=== PATIENT | female | born 1945 | race Caucasian/White ===

== ENCOUNTER 2021-02-01 10:09 | Inpatient (IN) | payer OTHER ==
[~2021-02-01] VITALS: Ht 172.7 cm; Wt 133.8 kg
--- NOTE | ~2021-02-01 | HC ---
[facility] [place] [address] CONSULTATION Name: LOVE CASTANEDA Room #: 350-P ADM IN M.R.#: [id number] Admission: 02/01/21 Attend Phys: Neymar Petersen MD Discharge: Date of : 45 Report #: [id number] THIS REPORT FOR: cc: Mukesh Cantor MD, Marjon MD Khosla, Parveen K. MD ~ DOC #: [id number] Sam Ibrahim MD DATE OF SERVICE: 02/02/2021 HISTORY OF PRESENT ILLNESS: This 75-year-old female patient who was seen by me for abnormal CT scan of the head. The patient is encephalopathic and she is not able to provide much reliable history. I called the patient's , but he did not pharmacy picking technician his phone. She is admitted with multiple problems including alteration in mental status, generalized weakness, poor appetite, and diarrhea. 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 REVIEW OF SYSTEMS: Review of system is only from the record. One of the record indicates that this patient has aneurysm and talking to the hospitalist indicated the patient may have had a surgery for pituitary gland in the past. She has right eye blindness. She says it is because of trauma, but I am not able to confirm. She has a history of hypertension and diabetes. She had a partial hysterectomy, PEE. 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 That was a relevant a 14-point review of system. PAST MEDICAL HISTORY: Positive for some pituitary surgery, I need more history on that. FAMILY HISTORY: Unremarkable. SOCIAL HISTORY: She is , but I am not able to reach the to get some more history. She says she does not drink alcohol. The history is not reliable. PHYSICAL EXAMINATION: NEUROLOGICAL: Her exam is limited. She is alert. She was able to tell me what month it is, could not tell me the date, could not tell me what hospital she is in. Speech looks intact. Right eye, she could not see and she says it is old. Cranial nerve examinations appear unremarkable. She is weak in all 4 extremities. On the lower extremities, she does appear to have a rash. She complained of tenderness there. When I do the position sense, she does reasonably well. Rest of the sensation, she does not cooperate. Reflexes are difficult to tell because of the tenderness, but she does not appear to be having much reflexes in the lower extremities. There is no meningeal sign. She did not cooperate with the fundus examination. She is an obese individual. She can hear and her vision on the left eye looks intact. [address] [address] CONSULTATION Name: LOVE CASTANEDA Room #: 350-[facility] IN M.R.#: [id number] Admission: 02/01/21 Attend Phys: Neymar Petersen MD Discharge: Date of : 45 Report #: [id number] CARDIOVASCULAR: Pulses are difficult to feel. Cardiac examinations appear noncontributory. She appeared to be pretty significantly short of breath. VITAL SIGNS: Her last blood pressure is 107/47, respirations 18, pulse is 80, temperature is 98. LABORATORY DATA: White count is 15.5. Her kidney function is a markedly abnormal with GFR of only 11. 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 I need to reach the patient's . These things are typically handled by neurosurgeon and neurologists are not involved with that, but as I understand from the hospital, as no neurosurgeon comes here for these problems, I will try to talk to the to see what this mass is and we will also see what the mass in her kidney is and see how aggressive the family wants to be and what her prior situation is. Thank you very much for this referral. Sam Ibrahim MD PK/I By: 1437 0046 Sam Ibrahim MD /nt
--- NOTE | ~2021-02-01 | HC ---
[facility] [place] [address] CONSULTATION Name: LOVE CASTANEDA Room #: 350-P ADM IN M.R.#: [id number] Admission: 02/01/21 Attend Phys: Neymar Petersen MD Discharge: Date of : 45 Report #: [id number] THIS REPORT FOR: cc: Mukesh Cantor MD, Marjon MD Al-Absi,Sharon Mckee MD ~ DOC #: [id number] Sharon Dewitt MD DATE OF SERVICE: 02/02/2021 NEPHROLOGY CONSULTATION REASON FOR CONSULTATION: Elevated creatinine. REASON FOR THE PRESENTATION: Confusion. HISTORY OF PRESENT ILLNESS: Obtained from the medical chart. The patient is confused and not able to provide me with any history. The patient is known to have chronic kidney disease, panhypopituitarism, hypertension, diabetes mellitus, brain aneurysm, status post surgical intervention. She presented with increasing confusion and generalized weakness. She has very poor appetite reported by her family member. She also had some diarrhea. On arrival to the Emergency Room, she was found to have an elevated creatinine. The patient visited with her primary care physicians on 01/19/2021 and was treated for urinary tract infection. The patient was also found to have a kidney lesion on her CT scan mandating a Nephrology consultation. PAST MEDICAL HISTORY: 1. Hypertension. 2. Diabetes mellitus. 3. Panhypopituitarism. 4. Chronic kidney disease with unknown baseline kidney function. 5. Hyperlipidemia. 6. Anxiety. 7. Depression. 8. History of brain aneurysm. HOME MEDICATIONS: 1. Tizanidine. 2. Warfarin. 3. Atorvastatin. 4. Metoprolol. 5. Losartan. 6. Gabapentin. 7. Sucralfate. 8. Prednisone. [facility] [address] [place] [address] CONSULTATION Name: LOVE CASTANEDA Room #: 350-P [facility] IN ..#: [id number] Admission: 02/01/21 Attend Phys: Neymar Petersen MD Discharge: Date of : 45 Report #: [id number] 9. Levothyroxine. REVIEW OF SYSTEMS: Unable to obtain given the patient's current mental status. FAMILY HISTORY: Unable to obtain given the patient's current mental status. SOCIAL HISTORY: She lives with her , further details are not available. PHYSICAL EXAMINATION: GENERAL: She is confused, disoriented. VITAL SIGNS: Blood pressure is 124/50, pulse rate is 75, temperature 36.6, respiratory rate is 18. HEAD AND NECK: No jugular venous distention. CHEST: Decreased air entry bilaterally. CARDIOVASCULAR: No rubs detected. ABDOMEN: Obese. LOWER EXTREMITIES: +1 edema. LABORATORY VALUES: White blood cell count was 20.5 thousand yesterday, down to 15,000. BUN was 47 yesterday, up to 54 today. Creatinine was 4 yesterday, still at 4 today. MICROBIOLOGICAL STUDIES: Pending. IMAGING STUDIES: CT abdomen revealed distended gallbladder. A 3-cm exophytic lesion of the lower pole cortex of the left kidney, suspicious for renal cell mass was found. ASSESSMENT, IMPRESSION, PLAN: 1. Altered mental status. 2. Leukocytosis. 3. Chronic kidney disease. 4. Left renal mass. 5. History of deep venous thrombosis. 6. Diabetes mellitus. 7. Abnormal CT of the head. 8. We need to obtain the patient's baseline creatinine and I will communicate with the nurses about trying to get her primary care physician's previous values. 9. Goals of care will have to be addressed with the family given the severe comorbid condition. 10. Appropriate antibiotics were initiated for potential cholecystitis. 11. Resume her panhypopituitarism medications. 12. Initiate on IV fluid given her decreased oral intake, which might be [facility] [address] [place] [address] CONSULTATION Name: LOVE CASTANEDA Room #: 350-P ADM IN M.R.#: [id number] Admission: 02/01/21 Attend Phys: Neymar Petersen MD Discharge: Date of : 45 Report #: [id number] contributing for her acute kidney injury. 13. Hold blood pressure medications. 14. Avoid nephrotoxins. 15. Septic workup. 16. Encephalopathy workup. I am not really sure if this patient would be a good candidate for any surgical procedure regarding her CT of the head, CT of the abdomen finding. Primary team had initiated the patient back on her anticoagulation. We will continue to follow along. Sharon Dewitt MD AIA/GABY By: 0531 [id number] Sharon Dewitt MD /nt
[2021-02-01 10:09] VITALS: BP 121/86
[~2021-02-01 10:09] MED LIST: ALPRAZOLAM 0.0.25 M1 PO; CARAFATE 1 GM TA1 G1 PO; CELEXA20 MG PO; CIPRO500 MG PO; CORTISONE ACETA25 MG PO; COUMADIN 5 MG TA5 M1 PO; COZAAR100 MG PO; DDAVP0.1 MG/1 M NASAL; GABAPENTIN 100100 MG PO; GLIPIZIDE ER2.5 MG PO; HYDROCHLOROTHIA25 M1 PO; LASIX 40 MG TAB40 M2 PO; LEVOTHROID112 MCG PO; LEVOTHYROXIN0.112 M1 PO; MIDRIN CAPSULE1 CAP PO; NORCO 10-325 T1 EACH PO; NORVASC10 MG PO; OXYCONTIN40 MG PO; OXYCONTIN80 M1 PO; POTASSIUM20 PO; PREDNISONE 5 MG5 M1 PO; PRISTIQ50 M1 PO; PROZAC40 MG PO; REQUIP 1 MG TABL1 M1 PO; TOPROL XL25 MG PO; VICODIN 5-5001 EACH PO; VITAMIN D32000 UNI1 PO; ZANAFLEX4 M1 PO; ZANTAC 150MG T150 M1 PO; ZOCOR 20 MG TAB20 M1 PO
[2021-02-01 11:23] LABS: HEMOGLOBIN 11.1 gm/dL (12.0-15.0); MCH 28.2 pg (26.0-34.0); MCHC 32.7 g/dL (28.0-37.0); MCV 86.2 fL (80.0-100.0); PLATELET COUNT 209 thou/uL (150-400); RBC 3.95 mil/uL (4.20-5.00); RDW 14.7 % (10.5-14.5); WBC 20.5 thou/uL (4.0-11.0)
[2021-02-01 11:32] LABS: URINE BILIRUBIN NEGATIVE (Negative); URINE BLOOD NEGATIVE (Negative); URINE CLARITY SL CLOUDY; URINE COLOR YELLOW; URINE GLUCOSE-RANDOM* NEGATIVE (Negative); URINE KETONES NEGATIVE (Negative); URINE LEUKOCYTES-REFLEX NEGATIVE (Negative); URINE NITRITE-REFLEX NEGATIVE (Negative); URINE PROTEIN (DIPSTICK) TRACE (Negative); URINE SPECIFIC GRAVITY 1.025 (1.005-1.035); URINE UROBILINOGEN 0.2 E.U./dl (0.2-1.0)
[2021-02-01 11:37] LABS: ANION GAP 16 mmol/L (7-16); BUN 47 mg/dL (7-18); CALCIUM 9.5 mg/dL (8.5-10.1); CHLORIDE 103 mmol/L (98-107); CO2 21 mmol/L (21-32); GLUCOSE 191 mg/dL (74-106); POTASSIUM 4.7 mmol/L (3.5-5.1); SODIUM 140 mmol/L (136-145)
[2021-02-01 11:47] LABS: ALBUMIN 3.5 g/dL (3.4-5.0); SGOT 21 U/L (15-37); SGPT 40 U/L (30-65); TOTAL BILIRUBIN 0.7 mg/dL (0.2-1.0); TOTAL PROTEIN 8.2 g/dL (6.4-8.2); TROPONIN-I <0.06 ng/mL (<0.06)
[2021-02-01 12:15] LABS: PLATELET ESTIMATE NORMAL; POLYCHROMASIA SLIGHT
--- NOTE | 2021-02-01 12:35 | EKG ---
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: : 1945 Requested By: Glen Avitia Order Number: [id number] MD: Josse Rangel Measurements Intervals [place] Rate: 86 P: UT: QRS: 25 QRSD: 115 T: 68 QT: 428 QTc: 512 Interpretive Statements Atrial fibrillation Nonspecific intraventricular conduction delay Borderline repolarization abnormality Baseline wander in lead(s) V5 Compared to ECG 05/05/2014 19:15:01 Intraventricular conduction delay now present Sinus rhythm no longer present ST (T wave) deviation no longer present Prolonged QT interval no longer present Electronically Signed On 02-01-2021 12:35:05 CDT by Josse Rangel [email or web address] <ELECTRONICALLY SIGNED> By: Josse Rangel MD, [facility] 02/01/21 1235 1045 1045 Josse Rangel MD, [facility] /EPI
[2021-02-01 13:08] VITALS: BP 119/67
[2021-02-01 14:02] VITALS: BP 123/65
[2021-02-01 14:24] VITALS: BP 134/54
[2021-02-01 14:33] LABS: APTT 35.3 Seconds (24.5-32.8); INR 0.95; PROTIME 10.4 Seconds (10.5-12.1)
[2021-02-01] MEDS ORDERED: LOSARTAN POTASS50 MG PO (15:17)
[2021-02-01] MEDS ORDERED: SERTRALINE HCL100 MG PO (15:19)
[2021-02-01] MEDS ORDERED: HYDROCORTISONE (15:21)
[2021-02-01] MEDS ORDERED: LEVOTHYROXINE125 MCG PO (15:22)
[2021-02-01] MEDS ORDERED: LOPERAMIDE 2 MG2 M1 PO (15:23)
[2021-02-01] MEDS ORDERED: TIZANIDINE HCL4 M2 PO (15:25)
[2021-02-01] MEDS ORDERED: VITAMIN D3 PO (15:28)
[2021-02-01] MEDS ORDERED: FLONASE 0.05%50 MCG NARES (15:29)
[2021-02-01] MEDS ORDERED: DETROL LA4 MG PO (15:30)
[2021-02-01] MEDS ORDERED: ALLERGY RELIEF180 MG PO (15:35)
[2021-02-01] MEDS ORDERED: LIPITOR 10 MG10 M1 PO (15:37)
[2021-02-01] MEDS ORDERED: BUSPIRONE HCL15 MG PO (15:37)
[2021-02-01] MEDS ORDERED: CEPHALEXIN500 MG PO (15:39)
[2021-02-01] MEDS ORDERED: DDAVP NARES (15:40)
[2021-02-01] MEDS ORDERED: SLEEP AID50 MG PO (15:43)
[2021-02-01] MEDS ORDERED: BIOFREEZE118 ML TOP (15:43)
[2021-02-01] MEDS ORDERED: NARCAN4 MG NARES (15:45)
--- NOTE | 2021-02-01 17:45 | NUR ---
HEPARIN GTT STARTED AT 1725. HEPARIN DOSING [id number] STATES ACTUAL WT (KG) OF PT 133.81, DOSING WT AT 133.81 KG, BOLUS UNITS (80 U/KG) 99207 UNITS, BOLUS MLS (1000 U/ML) 10.0 ML, INFUSION UNITS/HR U/KG/HR): 1500.0 UNITS/HR, INFUSION RATE (100 U/ML): 15.O MLS/HR. WHEN INFORMATION ABOVE ENTERED INTO SPACE PUMP , PUMP READS INFUSION RATE AT 20.07 ML/HR. RN CALLED JESSE MACE AND HE STATED THIS IS A KNOWN ERROR AND THAT THE STARTING KG'S NEED TO BE 100 KG AND NOT THE PT'S 133.81KG. WITH THIS CHANGE IN PT STARTING WT TO 100.0 KG PER PHARMD THE INFUSION RATE MATCHES THE HEPARIN DOSING SHEET OF 15.0 MLS/HR. CHANGE WAS MADE AND WITNESSING RN AWARE.
--- NOTE | 2021-02-01 18:41 | NUR ---
1425, PT ARRIVED TO UNIT AND PLACED ON TELEMETRY. HISTORY GIVEN TO RN BY PT'S . PT VERY SLEEPY LETHARGIC BUT IS AROUSABLE AT THIS TIME.
[2021-02-01 19:21] VITALS: BP 122/54
[2021-02-01 23:02] VITALS: BP 136/60
[2021-02-02 03:49] VITALS: BP 124/50
[2021-02-02 05:16] LABS: ABSOLUTE NEUTROPHILS 12.9 thou/uL (1.4-8.2); BASOPHILS 0.3 % (0.0-2.0); EOSINOPHILS 1.1 % (0.0-3.0); HEMATOCRIT 30.3 % (37.0-47.0); HEMOGLOBIN 9.6 gm/dL (12.0-15.0); LYMPHOCYTES 9.4 % (24.0-44.0); MCH 27.9 pg (26.0-34.0); MCHC 31.8 g/dL (28.0-37.0); MONOCYTES 5.9 % (1.0-8.0); PLATELET COUNT 179 thou/uL (150-400); POLYS 83.3 % (36.0-66.0); RBC 3.44 mil/uL (4.20-5.00); RDW 15.1 % (10.5-14.5); WBC 15.5 thou/uL (4.0-11.0)
--- NOTE | 2021-02-02 05:24 | NUR ---
PT ALERT AND ORIENTED X3. MILDLY CONFUSED AT TIMES. BLIND R EYE. BELL PLACED ORDERED. LG AMTS CLEAR YELLOW COLORED URINE OBTAINED. TYLENOL GIVEN FOR C.I VAGINAL PAIN AFTER BELL PLACED WHICH WAS RESOLVED WITH TYLENOL. PT FELL ASLEEP. TYLENOL GIVEN THIS AM FOR BACK PAIN. PT FELL BACK ASLEEP. TITRATING HEPARIN GTT ORDERED PER PROTOCOL. NO S/S BLEEDING NOTED. AFIB NOW SR ON THE MONITOR.
[2021-02-02 05:59] LABS: CALCIUM 8.8 mg/dL (8.5-10.1); MAGNESIUM 2.3 mg/dL (1.8-2.4); POTASSIUM 4.6 mmol/L (3.5-5.1)
[2021-02-02 07:05] VITALS: BP 127/56
[2021-02-02] MEDS ORDERED: ZANAFLEX4 MG PO (13:54)
[2021-02-02] MEDS ORDERED: CORTEF10 MG PO (13:57)
[2021-02-02] MEDS ORDERED: CORTEF5 MG PO (13:58)
[2021-02-02] MEDS ORDERED: VITAMIN D350 MC3 PO (14:01)
[2021-02-02] MEDS ORDERED: DESMOPRESS10 MCG/0.3 NASAL (14:07)
--- NOTE | 2021-02-02 14:18 | NUR ---
INITIAL ASSESSMENT: HOANG reviewed chart and spoke with nursing and attending physician. Pt was admitted from home due to DVT/sepsis. Pt is on 2L of O2 and heparin gtt. HOANG met with pt and spouse at bedside. Introduced role of SW. Pt was sleeping during time of SW visit. Pt's spouse provided assessment info. Pt and spouse live at home. No stairs to navigate. Pt has a cane and w/c. Pt's spouse states that she has required more assistance the last couple of weeks. No hx of post-acute placement. Pt's spouse states that he prefers pt returns home with HH services. Their daughter in a nursing facility in August of 2019. Pt's spouse states that they had negative experiences in several nursing facilities. Pt's PCP (Dr. Mukesh Cantor) recently sent a referral to [facility]. Pt has not yet been admitted on service. HOANG spoke with [facility]a in intake, who confirmed they do have pt's info on file and are able to start HH when pt is discharged. HOANG is following to assist as needed with discharge planning.
[2021-02-02 15:33] VITALS: BP 107/47
--- NOTE | 2021-02-02 17:51 | NUR ---
CARE ASSUMED AT 0700, PT ALERT AND ORIENTED X2, CONFUSED AND FORGETFUL AT TIMES. PT ON 2L OF O2, NO SIGNS OF DISTRESS NOTED. HEPARIN DRIP RUNNING PER ORDER. PT DENIES ANY PAIN. PEDAL PULSES PRESENT WITH DOPPLER. BELL CATHETER IN PLACE, PATNET AND SECURED. FALL PRECAUTIONS IN PLACE. WILL CONTINUE TO MONITOR
[2021-02-02 19:45] VITALS: BP 115/63
--- NOTE | 2021-02-02 21:47 | NUR ---
CRITICAL LAB FOR HEPARIN CAME BACK AT 91.2 PER CINDY. PT ON HEPARIN DRIP AND WILL FOLLOW HEPARIN FLOW SHEET. HOLD FOR 1 HOUR AND DROP DRIP GTT BY 3 UNITS. RESCHEDULE NEXT APTT LAB IN 6 HOURS.
[2021-02-03 04:22] VITALS: BP 105/52
[2021-02-03 05:19] LABS: HEMATOCRIT 29.1 % (37.0-47.0); HEMOGLOBIN 9.1 gm/dL (12.0-15.0); MCH 27.4 pg (26.0-34.0); MCHC 31.3 g/dL (28.0-37.0); MCV 87.4 fL (80.0-100.0); RBC 3.33 mil/uL (4.20-5.00); RDW 14.9 % (10.5-14.5)
[2021-02-03 05:54] LABS: ALBUMIN 2.5 g/dL (3.4-5.0); CALCIUM 8.7 mg/dL (8.5-10.1); CREATININE 3.5 mg/dL (0.6-1.0); PHOSPHORUS 4.3 mg/dL (2.5-4.9); POTASSIUM 4.3 mmol/L (3.5-5.1)
--- NOTE | 2021-02-03 06:20 | NUR ---
PT NPO SINCE 2400 FOR GI PROCEDURE THIS AM. STILL NO BM OVERNIGHT. LAST APTT AT 0400 WAS 41.6, FOLLOWING PROTOCOL AND 30 UNIT BOLUS AND MOVED 2 UNITS UP. TELE SHOWS AFIB. HOURLY ROUNDING.
[2021-02-03 07:13] VITALS: BP 115/56
--- NOTE | 2021-02-03 10:32 | NUR ---
PT TAKEN DOWN FOR NM SCAN, HEPARIN DRIP STOPPED UNTIL PT GETS BACK.
[2021-02-03] MEDS ORDERED: BENADRYL ALLERG25 MG PO (10:56)
[2021-02-03] MEDS ORDERED: AAA-MED REC COMPLETE PO (10:58)
[2021-02-03] MEDS ORDERED: NARCAN4 MG NARES (10:59)
[2021-02-03] MEDS ORDERED: BIOFREEZE118 ML TOP (11:00)
--- NOTE | 2021-02-03 11:21 | NUR ---
SW reviewed chart and spoke with nursing and attending physician. Pt is on 2L of O2 and on heparin gtt. Pt off the unit having PIPIDA scan this morning. SW to follow up with pt and spouse to discuss discharge planning. Pt has been accepted on service with [facility]. HOANG is following to assist as needed with discharge planning.
[2021-02-03 12:09] LABS: APTT 39.3 Seconds (24.5-32.8); INR 1.12; PROTIME 12.1 Seconds (10.5-12.1)
[2021-02-03 19:25] VITALS: BP 120/80
[2021-02-04 04:27] VITALS: BP 126/77
[2021-02-04 05:14] LABS: HEMATOCRIT 29.1 % (37.0-47.0); HEMOGLOBIN 9.3 gm/dL (12.0-15.0); MCH 27.9 pg (26.0-34.0); MCHC 31.8 g/dL (28.0-37.0); MCV 87.6 fL (80.0-100.0); RBC 3.32 mil/uL (4.20-5.00); WBC 9.7 thou/uL (4.0-11.0)
[2021-02-04 05:27] LABS: INR 1.37; PROTIME 14.7 Seconds (10.5-12.1)
[2021-02-04 05:44] LABS: ALBUMIN 2.4 g/dL (3.4-5.0); CALCIUM 8.7 mg/dL (8.5-10.1); CREATININE 2.8 mg/dL (0.6-1.0); PHOSPHORUS 4.3 mg/dL (2.5-4.9); POTASSIUM 4.4 mmol/L (3.5-5.1)
--- NOTE | 2021-02-04 06:21 | NUR ---
INTERDRY PLACED IN PT PANNUS. PT SLEPT COMFORTABLY MOST OF THE SHIFT. APTT 51.9 WHICH IS THERAPEUTIC, HEPARIN INFUSING AT 15U. ATTEMPTED Q2 TURNS BUT PT ROLLS HERSELF BACK TO PREVIOUS POSITION. VSS, PT HAS PAIN COMPLAINTS IN RIGHT ARM. TYLENOL GIVEN X1.
[2021-02-04 07:09] VITALS: BP 133/70
--- NOTE | 2021-02-04 11:54 | NUR ---
SW reviewed chart and spoke with nursing and attending physician. Pt is progressing towards goals for discharge. SW received call from Patience at [facility], who states they do not accept pt's insurance for SNF. Pt's spouse is not present at bedside. SW to follow up with pt and spouse this afternoon to discuss alternate SNFs and discharge plan. SW is following to assist as needed with discharge planning.
[2021-02-04 14:59] VITALS: BP 128/84
[2021-02-04 19:16] VITALS: BP 122/89
[2021-02-04 23:34] VITALS: BP 92/48
--- NOTE | 2021-02-05 01:27 | NUR ---
DISCHARGE PATIENT TRANSFERRED TO [facility] FOR AN MRI OF HER HEAD. 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 VSS, CONSENT FROM [facility] OBTAINED VIA PHONE WITH MYSELF AND EPIC CADENCE ANALYST WITNESSES. CLARIFIED WITH CRISTINE ALBERTO THAT HEPARIN GTT SHOULD REMAIN ON AND SENT RUNNING WITH PATIENT. VSS, PERIPHERAL IV'S INTACT. BELL CATHETER IN PLACE DRAINING ADEQUATE AMOUNT OF DARK YELLOW CLEAR URINE. REPORT GIVEN TO CHASIDY JOYA FROM [facility]. PT TRANSFERRED FROM BED TO [facility] T[facility] WELL ALL BELONGINGS WITH PT. SPOUSE NOTIFIED OF TRANSFER AND NEW ROOM NUMBER.
--- NOTE | 2021-02-05 09:07 | HC ---
[facility] [address] CONSULTATION Name: LOVE CASTANEDA Room #: 350-[facility] IN M.R.#: [id number] Admission: 02/01/21 Attend Phys: Neymar Petersen MD Discharge: 02/05/21 Date of : 45 Report #: [id number] THIS REPORT FOR: cc: Mukesh Cantor MD, Marjon MD Barry,Ryan Cerws MD ~ DOC #: [id number] Ryan Zavala MD DATE OF SERVICE: 02/02/2021 INFECTIOUS DISEASE CONSULTATION ATTENDING PHYSICIAN: Dr. Petersen. REASON FOR CONSULTATION: Sepsis, possible cholecystitis. HISTORY OF PRESENT ILLNESS: The patient is a 75-year-old woman with extensive medical history including panhypopituitarism, diabetes mellitus, advanced renal disease, who was brought from home with complaints of increasing confusion, noted to have had a recent fall 2 days prior, experienced some left-sided pain, evaluation was undertaken. Chest x-ray was fairly unremarkable, urinalysis as well and a creatinine of 4.0. LFTs were unremarkable. Lactic acid of 1.7, was found to have a left lower extremity deep venous thrombosis. CT showed a hyperdense suprasellar mass measuring [address] abdomen and pelvis noted mildly distended gallbladder with some wall thickening, nonobstructing lower pole left renal stone, diverticulosis without diverticulitis, 3 cm exophytic lesion of the lower pole cortex of the left kidney. D-dimer was elevated at greater than 35.2. Coronavirus testing was negative. Blood culture collected at the time of admission are sterile thus far. She was empirically started on therapy, given a dose of levofloxacin. She is still quite encephalopathic. She actually admits to left lower quadrant pain at this point. She is maintained on supplemental oxygen at 2 liters per nasal cannula. ALLERGIES: CONTRAST DYE, DILANTIN, CEPHALEXIN, PENICILLIN, SULFA, LISINOPRIL, IODINE, METFORMIN, FENTANYL, TRAMADOL, DULOXETINE. MEDICATIONS: Include sertraline, gabapentin, atorvastatin, levothyroxine, amlodipine, tizanidine, alprazolam, sucralfate, pantoprazole, p.r.n. ondansetron, analgesics. PAST MEDICAL HISTORY: As noted above, diabetes mellitus, hypertension, reflux, anxiety, depression, panhypopituitarism, history of DVT and PE. SOCIAL HISTORY: Former smoker, no ethanol, no illicit drug use. FAMILY HISTORY: Noncontributory. [address] [address] CONSULTATION Name: LOVE CASTANEDA Room #: [facility] IN M.R.#: [id number] Admission: 02/01/21 Attend Phys: Neymar Petersen MD Discharge: 02/05/21 Date of : 45 Report #: [id number] REVIEW OF SYSTEMS: Somewhat limited otherwise unremarkable with the exception of the above. PHYSICAL EXAMINATION: GENERAL: She appears chronically ill, undernourished. She is obese, moderate distress, is mildly encephalopathic. VITAL SIGNS: Temperature 98.1, pulse 80, respirations 18, blood pressure 127/56. SKIN: Warm, dry. HEENT: Normocephalic. Extraocular muscles intact. Nasal cannula in place. NECK: Supple. LUNGS: Diminished breath sounds, basilar crackles. HEART: Regular, soft systolic murmur. ABDOMEN: Soft, does have some tenderness in the left lower quadrant. There is no overt peritoneal signs. She is morbidly obese. GENITOURINARY AND RECTAL: Deferred. LABORATORY DATA: Blood culture sterile thus far. Electrolytes from this morning, sodium 139, potassium 4.6, chloride 105, bicarbonate 17, anion gap of 17, BUN and creatinine 54 and 4.0, glucose of 173. CBC: White count of 15.5 down from a peak of 20.5, H and H 9.6 and 30.3, platelets of 179. PT 10.4, INR of 0.95. ____ testing was negative. D-dimer was elevated. CT abdomen and pelvis as described above. ASSESSMENT: 1. Encephalopathy complicated by weakness, diarrhea. The patient has got extensive medical history. 2. Chronic renal disease. 3. Diabetes mellitus. 4. Hypopituitarism. 5. Longstanding deep venous thrombosis, history of pulmonary embolism. 6. Radiographic evidence of some inflammatory changes noted with the gallbladder, left renal mass. PLAN: We will continue empiric therapy. Adjust regimen. It is not entirely clear what is going on, though this is indeed an infectious etiology or a complication related to primary issue that is not infectious. Noted plan For PIPIDA scan. We will continue to reassess as the more information comes in and the clinical course becomes apparent. We will add additional testing as required. MD BALDOMERO Eduardo/TOMI/UMESH [facility] [address] [place] [address] CONSULTATION Name: LOVE CASTANEDA Room #: 350-P DIS IN M.R.#: [id number] Admission: 02/01/21 Attend Phys: Neymar Petersen MD Discharge: 02/05/21 Date of : 45 Report #: [id number] <ELECTRONICALLY SIGNED> By: Ryan Zavala MD 02/05/21 0907 [id number] Ryan Zavala MD /nt
== END 2021-02-05 00:05 | disposition short-term general hospital (02) | DRG 871 ==
LOC: ER 10:09 → 3W 13:04 → EROBS 13:04 → 3W 13:59
PROVIDERS: Emergency Medicine; Hospitalist; Nurse Practitioner; ADMIT Hospitalist; ATTEND Hospitalist
DX: A41.9 Sepsis, unspecified organism (principal); G93.41 Metabolic encephalopathy; N17.9 Acute kidney failure, unspecified; E46 Unspecified protein-calorie malnutrition; I82.402 Acute embolism and thrombosis of unspecified deep veins of left lower extremity; N18.4 Chronic kidney disease, stage 4 (severe); Z68.41 Body mass index [BMI] 40.0-44.9, adult; Z20.822 Contact with and (suspected) exposure to COVID-19; H54.61 Unqualified visual loss, right eye, normal vision left eye; Z96.653 Presence of artificial knee joint, bilateral; F41.9 Anxiety disorder, unspecified; F32.9 Major depressive disorder, single episode, unspecified; E78.5 Hyperlipidemia, unspecified; I12.9 Hypertensive chronic kidney disease with stage 1 through stage 4 chronic kidney disease, or unspecified chronic kidney disease; M19.90 Unspecified osteoarthritis, unspecified site; K21.9 Gastro-esophageal reflux disease without esophagitis; N28.9 Disorder of kidney and ureter, unspecified; R65.20 Severe sepsis without septic shock; E11.22 Type 2 diabetes mellitus with diabetic chronic kidney disease; R53.81 Other malaise; E77.8 Other disorders of glycoprotein metabolism; N20.0 Calculus of kidney; E66.01 Morbid (severe) obesity due to excess calories; E03.9 Hypothyroidism, unspecified; I72.9 Aneurysm of unspecified site; Z87.891 Personal history of nicotine dependence; Z88.0 Allergy status to penicillin; Z88.8 Allergy status to other drugs, medicaments and biological substances; Z90.711 Acquired absence of uterus with remaining cervical stump; Z86.718 Personal history of other venous thrombosis and embolism; Z86.711 Personal history of pulmonary embolism; Z88.2 Allergy status to sulfonamides; Z88.6 Allergy status to analgesic agent; Z91.041 Radiographic dye allergy status
CPT/HCPCS: 10879